=== PATIENT | female | born 1995 | race Caucasian/White ===

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

== ENCOUNTER 2019-02-12 10:43 | Emergency (ER) | payer BC ==
--- OUTSIDE RECORDS SUMMARY | 2019-02-12 10:53 | XMS REPORT | Continuity of Care Document ---
:1995 External Reference #:[id number] Author Name Anh Aragon PA Address [address] [place] [address] Care Team Providers Name Role Phone Denise Yang MD - Family Care Team Information Manager Diversity Medicine Problems Description No Information Available Social History Type Date Description Comments Sex Unknown Tobacco Use Start: Unknown Patient has never smoked Smoking Status Reviewed: 02/04/19 Patient has never smoked Allergies, Adverse Reactions, Alerts Description No Information Available Medications Active Medications SIG Qnty Indications Ordering Provider Date Selenium Sulfide Use as a body 360ml B36.0 [place], 02/04/2019 2.25% wash twice daily MD Jose Shampoo for 3 weeks. Loestrin 1.5 (21) Unknown Concerta Unknown Immunizations Description No Information Available Vital Signs Date Vital Result Comment 02/04/2019 1:35pm Body Temperature 97.5 F Weight 108.00 lb Heart Rate 86 /min BP Systolic 124 mmHg BP Diastolic 78 mmHg Respiratory Rate 18 /min Height 62 inches 5'2" BMI (Body Mass Index) 19.8 kg/m2 Results Description No Information Available Procedures Description No Information Available Medical Devices Description No Information Available Encounters Type Date Location Provider Dx Diagnosis Office Visit 02/04/2019 [facility] Anh Aragon B36.0 Pityriasis 1:25p [place] [facility] versicolor Assessments Date Code Description Provider 02/04/2019 B36.0 Pityriasis versicolor Anh Aragon PA Plan of Treatment 02/04/2019 - Anh Aragon, PAB36.0 Pityriasis versicolorNew Medication: Selenium Sulfide 2.25 % - Use as a body wash twice daily for 3 weeks.Comments: Counseled on ddx. suspect tinea, will treat with selenium.Follow up with PCP with concerns. Patient understands and agrees. Functional Status Description No Information Available Mental Status Description No Information Available Referrals Description No Information Available
[2019-02-12 11:39] VITALS: BP 112/63
--- NOTE | 2019-02-12 12:21 | UC ---
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 - Allergy/Home Medications Allergies/Adverse Reactions: Allergies Allergy/AdvReac Type Severity Reaction Status Date / Time No Known Allergies Allergy Verified 02/12/19 11:31 PMH/Surg Hx/FS Hx/Imm Hx Previously Healthy: Yes - Surgical History Surgical History: Yes Surgery Procedure, Year, and Place: hernia repair, wisdom teeh extracted - Family History Known Family History: Positive: Respiratory Disease - + asthma - Social History Occupation: Student Lives: Dormitory/Roommates Alcohol Use: Occasionally Substance Use Type: None Smoking Status (MU): Never Smoked Tobacco - Immunization History Most Recent Influenza Vaccination: 2017 Review of Systems All Other Systems Reviewed And Are Negative: Yes Constitutional: Positive: Fever, Chills ENT: Positive: Nasal Discharge, Sinus Congestion Neurological: Positive: Headache - Mild headache. Is Patient Immunocompromised?: No Physical Exam Triage Information Reviewed: Yes Appearance: No Pain Distress, Well-Nourished, Ill-Appearing - Mildly ill appearing, pale in appearance. Vital Signs: Initial Vital Signs Temp 99.5 F 02/12/19 11:33 Pulse 75 02/12/19 11:33 Resp 20 02/12/19 11:33 BP 112/63 02/12/19 11:33 Pulse Ox 100 02/12/19 11:33 Vital Signs Reviewed: No Eyes: Positive: Conjunctiva Clear ENT: Positive: Hearing grossly normal, Pharynx normal, Nasal congestion - Clear nasal coryza., Nasal drainage, TMs normal, Uvula midline Neck: Positive: Supple, Nontender, No Lymphadenopathy Respiratory: Positive: Lungs clear, Normal breath sounds, No respiratory distress, No accessory muscle use Cardiovascular: Positive: RRR, No Murmur, Pulses Normal, Brisk Capillary Refill Abdomen Description: Positive: Nontender, No Organomegaly, Soft. Negative: CVA Tenderness (R), CVA Tenderness (L), Hepatomegaly, Splenomegaly Bowel Sounds: Positive: Present Musculoskeletal Exam: Normal Neurological Exam: Normal Psychological Exam: Normal Skin Exam: Normal Flu Course/Dx - Course Course Of Treatment: Rapid flu test: Negative I believe this is more the flulike illness that is going around the community and the College setting. No classes until Tuesday, rest, increase fluids. Recheck as needed. - Differential Dx/Diagnosis Provider Diagnosis: Flu-like symptoms Discharge ED - Sign-Out/Discharge Documenting (check all that apply): Patient Departure All imaging exams completed and their final reports reviewed: No Studies - Discharge Plan Condition: Fair Disposition: HOME Patient Education Materials: Viral Syndrome (ED) Forms: *School Release Referrals: Denise Yang MD [Primary Care Provider] - DREW CORBIN [[employer], [employer], OTHER] - Additional Instructions: Increase fluids, rest, Tylenol every 4 hours or Motrin every 8 hours for fever or body aches. Follow-up at the [facility] if no improvement in 3 or 4 days. - Billing Disposition and Condition Condition: FAIR Disposition: Home
[2019-02-12 12:46] LABS: Influenza A Molecular NEGATIVE (Negative); Influenza B Molecular NEGATIVE (Negative)
== END 2019-02-12 12:54 | disposition home or self-care (01) ==
LOC: UCCORT 10:43
DX: R50.9 Fever, unspecified (principal); M79.10 Myalgia, unspecified site; R09.89 Other specified symptoms and signs involving the circulatory and respiratory systems; R09.81 Nasal congestion; R51 Headache
CPT/HCPCS: 99211; G0463

== ENCOUNTER 2019-03-04 09:23 | Emergency (ER) | payer BC ==
[2019-03-04 09:49] VITALS: BP 116/65
--- NOTE | 2019-03-04 10:02 | UC ---
Complaint Female HPI - HPI Summary HPI Summary: 23-year-old female with urinary symptoms of burning on urination and frequency starting last evening. She denies any fever or chills. No nausea vomiting or diarrhea. - History Of Current Complaint Chief Complaint: UCGU Stated Complaint: URINARY COMPLAINT Time Seen by Provider: 03/04/19 09:35 Hx Obtained From: Patient Hx Last Menstrual Period: 02/16/19 ?: No Onset/Duration: Gradual Onset Timing: Intermittent Pain Intensity: 0 Character: Burning Aggravating Factor(s): Urination Associated Signs And Symptoms: Positive: Negative - Allergies/Home Medications Allergies/Adverse Reactions: Allergies Allergy/AdvReac Type Severity Reaction Status Date / Time No Known Allergies Allergy Verified 03/04/19 09:38 PMH/Surg Hx/FS Hx/Imm Hx Previously Healthy: Yes - Surgical History Surgical History: Yes Surgery Procedure, Year, and Place: hernia repair, wisdom teeh extracted - Family History Known Family History: Positive: Respiratory Disease - + asthma - Social History Alcohol Use: Occasionally Substance Use Type: None Smoking Status (MU): Never Smoked Tobacco - Immunization History Most Recent Influenza Vaccination: 2017 Review of Systems All Other Systems Reviewed And Are Negative: Yes Genitourinary: Positive: Dysuria, Frequency, Urgency Is Patient Immunocompromised?: No Physical Exam Triage Information Reviewed: Yes Appearance: Well-Appearing, No Pain Distress, Well-Nourished Vital Signs: Initial Vital Signs Temp 98.3 F 03/04/19 09:42 Pulse 83 03/04/19 09:42 Resp 18 03/04/19 09:42 BP 116/65 03/04/19 09:42 Pulse Ox 99 03/04/19 09:42 Vital Signs Reviewed: Yes Respiratory: Positive: Lungs clear, Normal breath sounds, No accessory muscle use Cardiovascular: Positive: RRR, No Murmur, Pulses Normal, Brisk Capillary Refill Abdomen Description: Positive: Nontender, No Organomegaly, Soft. Negative: CVA Tenderness (R), CVA Tenderness (L), Distended, Guarding, Hepatomegaly, Splenomegaly Bowel Sounds: Positive: Present Musculoskeletal Exam: Normal Neurological Exam: Normal Psychological Exam: Normal Skin Exam: Normal Complaint Female Dx - Course Course Of Treatment: The patient is comfortable here. I'm going to treat her with Bactrim DS one tab by mouth twice a day 5 days. Increase fluids. Definite follow-up with her primary care provider if no improvement in 3 or 4 days. Go to the emergency room if any fever, chills, back pain or vomiting and unable keep the medicine down. - Differential Dx/Diagnosis Provider Diagnosis: UTI (urinary tract infection) Discharge ED - Sign-Out/Discharge Documenting (check all that apply): Patient Departure All imaging exams completed and their final reports reviewed: No Studies - Discharge Plan Condition: Good Disposition: HOME Prescriptions: Sulfamethox/Trimethoprim DS* [Bactrim DS 800/160 TAB*] 1 tab PO BID 5 Days #10 tab Patient Education Materials: Urinary Tract Infection in Women (DC) Referrals: Denise Yang MD [Primary Care Provider] - Additional Instructions: Increase fluids, take the medicine with food. Definite follow-up with your primary care provider if no improvement in 4 or 5 days. Go to the emergency room if you develop fever, chills, back pain and vomiting and are unable to keep the medicine down. - Billing Disposition and Condition Condition: GOOD Disposition: Home
== END 2019-03-04 10:18 | disposition home or self-care (01) ==
LOC: UCCORT 09:23
DX: N39.0 Urinary tract infection, site not specified (principal)
CPT/HCPCS: 81003; 84702; 87077; 87086; 87186; 99212; G0463

== ENCOUNTER 2019-05-23 11:32 | Emergency (ER) | payer BC ==
[2019-05-23 12:26] VITALS: BP 131/68
--- NOTE | 2019-05-23 12:30 | UC ---
Back Pain HPI - HPI Summary HPI Summary: lower back pain x 2 hrs pain is 7 out 10 , worse with sitting down , better with ice and standing , no radiation of the pain, no numbness or tingling of lower ext no urinary symptoms s/p fall on ice, injury to her tailbone - History of Current Complaint Chief Complaint: UCGeneralIllness Stated Complaint: S/P FALL TAILBONE Time Seen by Provider: 05/23/19 12:27 Hx Obtained From: Patient Hx Last Menstrual Period: 05/10/19 ?: No Onset/Duration: Sudden Onset, Lasting Hours - 2, Still Present Timing: Constant Severity Initially: Severe Severity Currently: Moderate Pain Intensity: 7 Back Pain: Is Discrete @ - tailbone Character: Sharp Aggravating Factor(s): Movement, Other - sitting Alleviating Factor(s): Rest Associated Signs And Symptoms: Negative: Swelling, Redness, Bruising, Fever, Weakness, Numbness, Tingling, Abdominal Pain, Flank Pain, Bladder Incontinence, Bowel Incontinence, Weight Loss, Pain with Weight Bearing - Allergies/Home Medications Allergies/Adverse Reactions: Allergies Allergy/AdvReac Type Severity Reaction Status Date / Time No Known Allergies Allergy Verified 05/23/19 12:22 PMH/Surg Hx/FS Hx/Imm Hx - Additional Past Medical History Additional PMH: high cholesterol - Surgical History Surgical History: Yes Surgery Procedure, Year, and Place: hernia repair, wisdom teeh extracted - Family History Known Family History: Positive: Respiratory Disease - + asthma - Social History Alcohol Use: Occasionally Substance Use Type: None Smoking Status (MU): Never Smoked Tobacco - Immunization History Most Recent Influenza Vaccination: 2017 Review of Systems All Other Systems Reviewed And Are Negative: Yes Constitutional: Positive: Negative Skin: Positive: Negative Eyes: Positive: Negative Is Patient Immunocompromised?: No Physical Exam Triage Information Reviewed: Yes Appearance: Well-Nourished, Pain Distress Vital Signs: Initial Vital Signs Temp 97.9 F 05/23/19 12:22 Pulse 87 05/23/19 12:22 Resp 16 05/23/19 12:22 BP 131/68 05/23/19 12:22 Pulse Ox 100 05/23/19 12:22 Vital Signs Reviewed: Yes Eyes: Positive: Conjunctiva Clear ENT: Positive: Normal ENT inspection, Hearing grossly normal, Pharynx normal Neck: Positive: Supple, Nontender, No Lymphadenopathy Respiratory: Positive: Chest non-tender, Lungs clear, Normal breath sounds Cardiovascular: Positive: RRR, No Murmur, Pulses Normal Musculoskeletal: Positive: Other: - lower back / tailbone: no swelling, no bruising, + tenderness, limited ROM on flexion / extension , normal DTR Diagnostics - Radiology No standard instances Radiology Interpretation Completed By: Radiologist Summary of Radiographic Findings: xray report : IMPRESSION: NO ACUTE OSSEOUS INJURY OF THE SACRUM AND COCCYX. PLAIN RADIOGRAPHS ARE RELATIVELY INSENSITIVE TO NONDISPLACED FRACTURES OF THE SACRUM AND COCCYX. IF THERE IS PERSISTENT CLINICAL CONCERN FOR SACROCOCCYGEAL OSSEOUS PATHOLOGY, BONE SCANNING MAY BE MORE SENSITIVE Back Pain Course/Dx - Differential Dx/Diagnosis Provider Diagnosis: Contusion of coccyx Discharge ED - Sign-Out/Discharge Documenting (check all that apply): Patient Departure All imaging exams completed and their final reports reviewed: Yes - Discharge Plan Condition: Stable Disposition: HOME Patient Education Materials: Contusion in Adults (ED) Referrals: Denise Yang MD [Primary Care Provider] - If Needed Additional Instructions: xray negative for fracture of the tailbone contusion cont. with rest, ice, take Ibuprofen as needed for pain follow up with your pcp as needed - Billing Disposition and Condition Condition: STABLE Disposition: Home
== END 2019-05-23 13:16 | disposition home or self-care (01) ==
LOC: UCCORT 11:32
DX: S30.0XXA Contusion of lower back and pelvis, initial encounter (principal); W00.0XXA Fall on same level due to ice and snow, initial encounter; Y92.9 Unspecified place or not applicable
CPT/HCPCS: 72220; 99211; G0463